=== PATIENT | female | born 1980 | race African-American/Black ===

== ENCOUNTER 2020-10-20 18:55 | Emergency (ER) | payer OTHER ==
[~2020-10-20] VITALS: Ht 157.5 cm; Wt 89.0 kg
[2020-10-20 20:29] LABS: BILIRUBIN,URINE SMALL (NEG); CLARITY,URINE CLEAR; COLOR,URINE AMBER; NITRITE,URINE NEGATIVE (NEG); PH,URINE 5.5 (<5.0-8.0); PROTEIN,URINE NEGATIVE (NEG-TRACE); UROBILINOGEN,URINE 0.2 mg/dL (0.2 mg/dL)
[2020-10-20] MEDS ORDERED: ONDANSETRON PF 4 MG/2 ML VIAL. IVP ONE (20:30)
[2020-10-20] MEDS ORDERED: fentaNYL PF VIAL 100 MCG/2 ML VIAL IVP ONE (20:30)
[2020-10-20] MEDS ORDERED: IV NORMAL SALINE 1000ML BAG 1,000 ML IV SCH (20:30)
--- NOTE | 2020-10-20 20:32 | PHYS DOC ---
Past Medical History Past Medical History: No Pertinent History Past Surgical History: Other Additional Past Surgical Histo: THYROIDECTOMY, LAP BAND Smoking Status: Never Smoker Alcohol Use: Rarely General Adult EDM: Chief Complaint: ABDOMINAL PAIN HPI: HPI: Patient is a 40 year old female who presents with 7:00 this morning she began having right lower abdominal pressure type pain and feeling like she had to have a bowel movement and then pain in her bilateral hips that are aching. She states she also felt nauseated. She states that she had a very small bowel movement that was diarrhea this morning. She states that she did an enema and had somewhat of stool come out. She states she still having symptoms. She has a history of LAP-BAND and tonsillectomy. Patient denies chest pain, shortness of air, fever, flank pain, urinary symptoms, headache, dizziness vomiting. She is rating her discomfort at a 5 out of 10. She did not take any pain medications prior to coming. Review of Systems: Review of Systems: Constitutional: Denies fever or chills. [] Eyes: Denies change in visual acuity. [] HENT: Denies nasal congestion or sore throat. [] Respiratory: Denies cough or shortness of breath. [] Cardiovascular: Denies chest pain or edema. [] GI: + abdominal pain, +nausea, denies vomiting, bloody stools or diarrhea. [] : Denies dysuria. + Constipation [] Musculoskeletal: Denies back pain or joint pain. [] Integument: Denies rash. [] Neurologic: Denies headache, focal weakness or sensory changes. [] Endocrine: Denies polyuria or polydipsia. [] Lymphatic: Denies swollen glands. [] Psychiatric: Denies depression or anxiety. [] Heart Score: C/O Chest Pain: No Risk Factors: Risk Factors: DM, Current or recent (<one month) smoker, HTN, HLP, family history of CAD, obesity. Risk Scores: Score 0 - 3: 2.5% MACE over next 6 weeks - Discharge Home Score 4 - 6: 20.3% MACE over next 6 weeks - Admit for Clinical Observation Score 7 - 10: 72.7% MACE over next 6 weeks - Early Invasive Strategies Allergies: Allergies: Allergies Coded Allergies Type Severity Reaction Last Updated Verified No Known Drug Allergies 10/20/20 No Physical Exam: PE: Constitutional: Well developed, well nourished, no acute distress, non-toxic appearance. [] HENT: Normocephalic, atraumatic, bilateral external ears normal, oropharynx moist, no oral exudates, nose normal. [] Eyes: PERRLA, EOMI, conjunctiva normal, no discharge. [] Neck: Normal range of motion, no tenderness, supple, no stridor. [] Cardiovascular:Heart rate regular rhythm, no murmur [] Lungs & Thorax: Bilateral breath sounds clear to auscultation [] Abdomen: Bowel sounds normal, soft, right upper quadrant and mid lower tenderness, no masses, no pulsatile masses. [] Skin: Warm, dry, no erythema, no rash. [] Back: No tenderness, no CVA tenderness. [] Extremities: No tenderness, no cyanosis, no clubbing, ROM intact, no edema. [] Neurologic: Alert and oriented X 3, normal motor function, normal sensory function, no focal deficits noted. [] Psychologic: Affect normal, judgement normal, mood normal. [] Current Patient Data: Vital Signs: Vital Signs Date Time Temp Pulse Resp B/P (MAP) Pulse Ox O2 Delivery O2 Flow Rate FiO2 10/20/20 19:10 98.8 98 16 137/69 (91) 99 Room Air 98.8 EKG: EKG: [] Radiology/Procedures: Radiology/Procedures: [] Impression: [facility] [address] [place], [place] [id number] IMAGING REPORT Signed PATIENT: TIFFANY GARY ACCOUNT: [id number] : 1980 LOCATION: ER AGE: 40 SEX: F EXAM STATUS: REG ER ORD. PHYSICIAN: SHIVANI CORLEY APRN REASON: nausea, diarrhea and constipation, OMNI 300, 75 ML IV PROCEDURE: CT ABD PELV W/ IV CONTRST ONLY PQRS Compliance Statement: One or more of the following individualized dose reduction techniques were utilized for this examination: 1. Automated exposure control 2. Adjustment of the mA and/or kV according to patient size 3. Use of iterative reconstruction technique CT ABDOMEN+PELVIS W Clinical Indication: Reason: nausea, diarrhea and constipation, Comparison: None. Technique: Helical CT imaging of the abdomen and pelvis is performed after 75 cc of Omnipaque 300 IV contrast. Oral contrast not administered. Findings: Lung bases are clear. Cardiac size normal. There is gastric lap band in appropriate position. The liver, gallbladder, spleen, pancreas, adrenal glands, abdominal aorta, and kidneys are normal. No gastric wall thickening is identified. There is no dilated small bowel. The appendix is normal. No colon wall thickening is identified. No abdominal jason opathy or free fluid is identified. The urinary bladder is normal. Anteverted uterus. Ovaries not well evaluated. No pelvic free fluid. Grade 1 retrolisthesis of L5 on S1. No acute bone abnormality. Rudimentary disc space of S1/S2. IMPRESSION: No acute abdominal or pelvic abnormality. Electronically signed by: Arcenio Mina MD (10/20/2020 10:04 PM) [facility] DICTATED and SIGNED BY: ARCENIO MINA MD DATE: 10/20/20 [id number] 0 Course & Med Decision Making: Course & Med Decision Making Pertinent Labs and Imaging studies reviewed. (See chart for details) See HPI. Alert and oriented x4. Ambulatory with a steady gait. Skin pink warm and dry. Speaks in full clear sentences. Abdomen is soft and tender to right upper quadrant and mid lower abdomen. Afebrile and vital signs are within normal limits. She last drank around 2000 tonight. She is keeping fluids down but she states she has not ate any food today. Blood work unremarkable. CT abdomen pelvis shows no acute findings. Shows some dehydration. She is afebrile. [] Zena Disclaimer: Zena Disclaimer: This electronic medical record was generated, in whole or in part, using a voice recognition dictation system. Departure Departure Impression: Primary Impression: Nonspecific abdominal pain Disposition: HOME / SELF CARE / HOMELESS Condition: STABLE Referrals: UNKNOWN PCP NAME (PCP) Patient Instructions: Abdominal Pain (Nonspecific) Additional Instructions: Follow-up with your primary care provider. Drink plenty of fluids. Take medication as prescribed. If symptoms worsen he can was return to the ER. Scripts Ondansetron (ONDANSETRON ODT) 4 Mg Tab.rapdis 1 TAB PO PRN Q6-8HRS, #16 TAB Prov: SHIVANI CORLEY APRN 10/20/20 SHIVANI CORLEY APRN Oct 20, 2020 20:32
[2020-10-20 20:34] LABS: BACTERIA,URINE 0 /HPF (0-FEW); RBC,URINE 0 /HPF (0-2); WBC,URINE OCC /HPF (0-4)
[2020-10-20 20:57] LABS: BASO % 0 % (0-3); EOS # 0.1 x10^3/uL (0.0-0.7); EOS % 1 % (0-3); HEMOGLOBIN 12.6 g/dL (12.0-15.5); LYMPH # 0.6 x10^3/uL (1.0-4.8); LYMPH % 8 % (24-48); MEAN CORPUSCULAR HEMOGLOBIN 24 pg (25-35); MEAN CORPUSCULAR HGB CONC 32 g/dL (31-37); MEAN CORPUSCULAR VOLUME 74 fL (79-100); MONO # 0.3 x10^3/uL (0.0-1.1); MONO % 4 % (0-9); NEUT # 6.4 x10^3/uL (1.8-7.7); NEUT % 87 % (31-73); PLATELET COUNT 220 x10^3/uL (140-400); WHITE BLOOD COUNT 7.4 x10^3/uL (4.0-11.0)
[2020-10-20 21:04] LABS: CALCIUM 8.1 mg/dL (8.5-10.1); CREATININE 0.8 mg/dL (0.6-1.0); GFR 96.6; POTASSIUM 3.5 mmol/L (3.5-5.1)
[2020-10-20 21:10] LABS: ALBUMIN 3.8 g/dL (3.4-5.0); TOTAL BILIRUBIN 0.9 mg/dL (0.2-1.0); TOTAL PROTEIN 7.6 g/dL (6.4-8.2)
[2020-10-20] MEDS ORDERED: IV NORMAL SALINE 1000ML BAG 1,000 ML IV ONE (21:30)
[2020-10-20] MEDS ORDERED: CONTRAST GIVEN. MC PRN (21:30)
[2020-10-20 21:39] LABS: PROTHROMBIN TIME PATIENT 12.3 SEC (11.7-14.0)
[2020-10-20] MEDS ORDERED: IOHEXOL 300 MG/ML 100ML VIAL. IV ONE (22:00)
--- NOTE | 2020-10-20 22:07 | RAD ---
PQRS Compliance Statement: One or more of the following individualized dose reduction techniques were utilized for this examinat ion: 1. Automated exposure control 2. Adjustment of the mA and/or kV according to patient size 3. Use of iterative reconstruction technique CT ABDOMEN+PELVIS W Clinical Indication: Reason: nausea, diarrhea and constipation, Comparison: None. Technique: Helical CT imaging of the abdomen and pelvis is performed after 75 cc of Omnipaque 300 IV contrast. Oral contrast not administered. Findings: Lung bases are clear. Cardiac size normal. There is gastric lap band in appropriate position. The liver, gallbladder, spleen, pancreas, adrenal glands, abdominal aorta, and kidneys are normal. No gastric wall thickening is identified. There is no dilated small bowel. The appendix is normal. No colon wall thickening is identified. No abdominal adenopathy or free fluid is identified. The urinary bladder is normal. Anteverted uterus. Ovaries not well evaluated. No pelvic free fluid. Grade 1 retrolisthesis of L5 on S1. No acute bone abnormality. Rudimentary disc space of S1/S2. IMPRESSION: No acute abdominal or pelvic abnormality. Electronically signed by: Arcenio Moreno MD (10/20/2020 10:04 PM) [facility]
[2020-10-20] MEDS ORDERED: ONDA4TAB12 PO (22:15)
[2020-10-20 22:54] LABS: % EOS 1 % (0-5); % LYMPHS 14 % (24-48); % MONOS 2 % (0-10); % SEGS 83 % (35-66)
[2020-10-20 22:55] LABS: ANISOCYTOSIS SLIGHT; HYPOCHROMIA SLIGHT; MICROCYTOSIS SLIGHT; PLT ESTIMATE ADEQUATE (ADEQUATE); TARGET CELLS OCC
[2020-10-21 00:08] VITALS: BP 100/65
== END 2020-10-21 00:26 | disposition home or self-care (01) ==
LOC: ER 18:55
DX: R10.9 Unspecified abdominal pain (principal); R11.0 Nausea; Z98.890 Other specified postprocedural states
CPT/HCPCS: 36415; 74177; 80053; 81001; 81025; 83690; 85007; 85025; 85610; 96361; 96374; 96375; 99284; J2405; J3010; J7030; Q9967